=== PATIENT | female | born 1945 | race Caucasian/White ===

== ENCOUNTER 2023-03-16 00:45 | Day surgery (SDC) | payer MEDICARE, OTHER, SELFPAY ==
[2023-03-03 13:26] VITALS: BMI 25.6
--- NOTE | 2023-03-15 11:00 | PM.HPGS ---
History of Present Illness History of Present Illness Consent: Risks, benefits, and alternatives have been discussed and questions answered. Patient agrees to proceed with procedure. Chief complaint: neoplasm screening Narrative: Marizol Walter is a 77 year old female referred for colon cancer screening. Her last colonoscopy was 11 years ago. she was recently told that her hemoglobin was a bit low Review of Systems Review of Systems: All systems reviewed & are unremarkable except as noted in HPI and below PMFSH Social History Social History Smoking status: Former smoker Alcohol intake: never Substance use: never Living arrangements: with family Spiritual care concerns: No Meds Home Medications and Allergies Home Medications Medication Instructions Recorded Confirmed Type albuterol sulfate 2.5 mg/3 mL 2.5 mg continuous nebulization 03/03/23 03/16/23 History (0.083 %) solution for nebulization DAILY alendronate 70 mg tablet 70 mg PO WEEKLY 03/03/23 03/16/23 History amlodipine 10 mg tablet 10 mg PO DAILY 03/03/23 03/16/23 History atorvastatin 20 mg tablet 20 mg PO DAILY 03/03/23 03/16/23 History fluticasone fur. 100 mcg-umeclid 1 ea inhalation DAILY 03/03/23 03/16/23 History 62.5 mcg-vilant 25 mcg inhalat.powder (Trelegy Ellipta) lisinopril 40 mg tablet 40 mg PO DAILY 03/03/23 03/16/23 History Allergies Allergy/AdvReac Type Severity Reaction Status Date / Time codeine Allergy Confusion Verified 03/16/23 09:34 Penicillins Allergy Dizziness Verified 03/16/23 09:34 Exam Const: General: alert Orientation/consciousness: patient oriented x3 Resp: Auscultation: clear to auscultation bilaterally Cardio: Rhythm: regular rhythm GI: GI Palp: Yes Soft to palpation and No Tenderness to palpation present (GI) Neuro: General: patient oriented x3 Assessment and Plan Assessment and plan (1) Colon cancer screening: Code(s): Z12.11 - Encounter for screening for malignant neoplasm of colon Status: Acute Assessment and Plan: Colonoscopy with possible biopsy or polypectomy or cautery or injection of substances.
[2023-03-16 09:35] VITALS: BP 148/56; PULSE 73; RESP 18; TEMP 36.2; O2SAT 100
[2023-03-16] MEDS: LACTATED RINGERS 1,000 ML 150 ML IV CONT (09:38)
--- NOTE | 2023-03-16 10:19 | P.PNAN_ITS ---
Anes - Initial Pre Proc Eval Procedure: Operation Date: 03/16/23 11:00 Proposed Procedures p Screening Colonoscopy - Isaac Zelaya MD Date/Time: 03/16/23 10:19 Surgeon: Isaac Zelaya MD Pre Op Diagnosis: neoplasm screening Patient Data Age: 77 Gender: F Height: 1.57 m Weight: 61.6 kg Last Vital Signs Temp 97.1 F L 03/16/23 09:35 Pulse 73 03/16/23 09:35 Resp 18 03/16/23 09:35 BP 148/56 H 03/16/23 09:35 Pulse Ox 100 03/16/23 09:35 O2 Del Method Nasal Cannula 03/16/23 09:35 O2 Flow Rate 4 03/16/23 09:35 Allergies Allergy/AdvReac Type Severity Reaction Status Date / Time codeine Allergy Confusion Verified 03/16/23 09:34 Penicillins Allergy Dizziness Verified 03/16/23 09:34 Home Medications Medication Instructions Recorded Confirmed Type albuterol sulfate 2.5 mg/3 mL 2.5 mg continuous nebulization 03/03/23 03/16/23 History (0.083 %) solution for nebulization DAILY alendronate 70 mg tablet 70 mg PO WEEKLY 03/03/23 03/16/23 History amlodipine 10 mg tablet 10 mg PO DAILY 03/03/23 03/16/23 History atorvastatin 20 mg tablet 20 mg PO DAILY 03/03/23 03/16/23 History fluticasone fur. 100 mcg-umeclid 1 ea inhalation DAILY 03/03/23 03/16/23 History 62.5 mcg-vilant 25 mcg inhalat.powder (Trelegy Ellipta) lisinopril 40 mg tablet 40 mg PO DAILY 03/03/23 03/16/23 History Patient hx anesthesia problems: none Family hx anesthesia problems: none Results Review: All pre-operative results and documents have been reviewed as part of the pre- operative evaluation. [facility] Social History Social History Smoking status: Former smoker Alcohol intake: never Substance use: never Living arrangements: with family Spiritual care concerns: No Anes - Eval Final PreProcedure Day of Procedure 03/16/23 10:19 Patient weight: normal Heart: regular rate and rhythm Lungs: clear to auscultation Airway: Mallampati scale class II Neurological: alert and oriented Last oral intake: >/= 8 hours ASA classification: III Emergent: no Anesthetic plan: proceed Anesthesia type and monitoring: general GIVS and standard monitoring Results Review: All pre-operative results and documents have been reviewed as part of the pre- operative evaluation. Informed Consent: The patient's anesthetic plan and its attendant risks and benefits were discussed with the patient/family/POA. Questions were solicited and answers provided to the satisfaction of the patient/family/POA.
[2023-03-16 10:57] VITALS: BP 107/49; PULSE 68; RESP 20; O2SAT 98
[2023-03-16 11:07] VITALS: BP 131/109; PULSE 65; RESP 22; O2SAT 100
[2023-03-16 11:17] VITALS: BP 127/67; PULSE 62; RESP 18; O2SAT 100
== END 2023-03-16 11:20 | disposition home or self-care (01) ==
PROVIDERS: PCP Internal Medicine; Visit Provider Internal Medicine Gastroenterology
PROC: 0DJD8ZZ Inspection of Lower Intestinal Tract, Via Natural or Artificial Opening Endoscopic (ICD-10-PCS; CPT 45378; principal; 2023-03-16 11:00)
DX: Z12.11 Encounter for screening for malignant neoplasm of colon (principal); K57.30 Diverticulosis of large intestine without perforation or abscess without bleeding; K64.8 Other hemorrhoids; Z87.891 Personal history of nicotine dependence; Z79.51 Long term (current) use of inhaled steroids
CPT/HCPCS: G0121; J2704; J7120

== ENCOUNTER 2025-01-19 08:45 | Outpatient (CLI) | payer MEDICARE, OTHER, SELFPAY ==
--- NOTE | ~2025-01-19 | PE_ITS ---
EXAMINATION: PET skull to mid thigh DATE: 01/19/2025 11:08 INDICATION: Pulmonary nodule. TECHNIQUE: Blood glucose level was 117 mg/dL. 10.454 mCi of 18- fluorodeoxyglucose (18-FDG) was administered i.v. Low dose computed tomography (CT) images were acquired from the base of the brain to the proximal thighs for attenuation correction and anatomic localization. Automated exposure control was employed. Dose-length product (DLP) was 732 mGy-cm. Positron emission tomography (PET) images were acquired in the same distribution. COMPARISON: None FINDINGS: Head/neck: There are no pathologically enlarged lymph nodes. Chest: There is moderate emphysema. There are 6 mm and 4 mm nodules in right lower lobe. There are 5 mm and 4 mm nodules in lingula. There are a few other scattered nodules measuring up to 3 mm. None of the nodules demonstrate increased activity. There is a 7 mm groundglass opacity in left upper lobe, likely benign. No pleural effusion. The heart size is normal. There are coronary artery calcifications. No pericardial effusion. Abdomen/pelvis/proximal thighs: Calcifications in the liver and spleen are consistent with old granulomatous disease. The gallbladder, pancreas, and right adrenal gland are normal. There is a 1.9 cm mass in the left adrenal gland measuring low attenuation without increased activity, consistent with an adenoma. The kidneys are normal. There is no urolithiasis. There is diverticulosis of the colon without evidence of diverticulitis. There are no dilated loops of bowel. There are no pathologically enlarged lymph nodes. There is no free intraperitoneal fluid. There is no osseous malignancy. IMPRESSION: 1. Pulmonary nodules measuring up to 6 mm without increased activity, probably benign. Noncontrast low-dose chest CT is recommended in 6 months. 2. Moderate emphysema. Reviewed, dictated and finalized at location E.
--- OUTSIDE RECORDS SUMMARY | 2025-01-19 09:07 | XMS_ITS | Clinical Summary ---
Author Organization [facility] Address [address] [place] [address] Care Team Providers Care School Cook Name Role Phone Marques Baker MD Primary Care Provider Source Comments [facility],non-owned Affiliates and Associated Physician Practices is amultiple site organization consisting of ambulatory clinics and hospital sitesin [place], [place], [place] and [place]. This disclosure is being madepursuant to the Care Everywhere program and may not contain all information available regarding this patient. Last updated 18.[facility] Allergies Active Allergy Reactions Criticality Noted Date Comments Clarithromycin Urticaria Medium 07/02/2021 Codeine Other 07/02/2021 Penicillins Dizziness 07/02/2021 Medications * Be aware that medications may not be up to date on this document. Alwaysverify current medications with the patient. alendronate (FOSAMAX) 70 MG/75ML solution Take 70 mg by mouth every 7 days before meal Active Fluticasone-Ume clidin-Vilant (TRELEGY ELLIPTA) 100-62.5-25 MCG/INH Inhale by mouth once daily Active atorvastatin (LIPITOR) 20 MG tablet Take 20 mg by mouth every morning Active amLODIPine (NORVASC) 10 MG tablet Take 10 mg by mouth once daily Active hydroCHLOROthia zide (HYDRODIURIL) 25 MG tablet Take 25 mg by mouth once daily Active Estrogens, Conjugated (PREMARIN VA) Insert into the vagina once daily Active Social History Tobacco Use Types Packs/Day Years Used Date Smoking Tobacco: Former Smokeless Tobacco: Never Alcohol Use Standard Drinks/Week Comments Not Currently 0 (1 standard drink = 0.6 oz pur e alcohol) PHQ-2 Answer Date Recorded PHQ2 TOTAL SCORE 0 07/02/2021 Comments Unknown Sex and Gender Information Value Date Recorded Sex Assigned at Not on file Legal Sex Female 3:34 PM INFERTILITY NURSE Gender Identity Not on file Sexual Orientation Not on file Last Filed Vital Signs Vital Sign Reading Time Taken Comments Blood Pressure 132/72 07/02/2021 10:42 AM INFERTILITY NURSE Pulse 84 07/02/2021 10:42 AM INFERTILITY NURSE Temperature - - Respiratory Rate - - Oxygen Saturation 99% 07/02/2021 10:42 AM INFERTILITY NURSE Inhaled Oxygen Concentration - - Weight 64.4 kg (142 lb) 07/02/2021 10:42 AM INFERTILITY NURSE Height - - Body Mass Index - - Plan of Treatment Health Maintenance Due Date Last Done Comments BONE DENSITY TESTING 1945 DTAP/TDAP/TD VACCINES (1 - Tdap) 07/26/1962 PNEUMOCOCCAL VACCINE 50+ (1 of 1 - PCV) 07/26/1993 ZOSTER VACCINE (1 of 2) 07/26/1993 Respiratory Syncytial Virus (RSV) Vaccine Pt: or over 60 yrs (1 - 1-dose 75+ series) 07/26/2018 DEPRESSION SCREENING 05/04/2024 COVID-19 VACCINE (2 - 2024- season) 2025 07/28/2020 INFLUENZA VACCINE (#1) 2025 9, 03/13/2017, 02/12/2016, Additional history exists HEPATITIS B VACCINE Aged Out No longe r eligible based on patient's age to complete this topic HIB VACCINE Aged Out No longer eligi ble based on patient's age to complete this topic HPV VACCINE Aged Out No longer eligi ble based on patient's age to complete this topic MENINGOCOCCAL (Group B) VACCINE SHARED DECISION-MAKING Aged Out No longer eligible based on patient's age to complete this topic MENINGOCOCCAL GROUPS A/C/Y/W VACCINE Aged Out No longer eligible based on patient's age to complete this topic Insurance MEDICARE [facility] [place] [address] Care Teams School Cook Relationship Specialty Start Date End Date Marques Baker MD [id number] [id number] PCP - General 05/14/21
== END 2025-01-19 08:46 | disposition home or self-care (01) ==
PROVIDERS: PCP Internal Medicine; Visit Provider Internal Medicine Pulmonary Disease
DX: R91.1 Solitary pulmonary nodule (principal); R91.8 Other nonspecific abnormal finding of lung field; J43.9 Emphysema, unspecified
CPT/HCPCS: 78815; A9552